=== PATIENT | male | born 1960 | race African-American/Black ===

== ENCOUNTER 2024-12-03 13:45 | Emergency (ER) | payer OTHER ==
[~2024-12-03] VITALS: Ht 180.3 cm; Wt 85.0 kg
[2024-12-03 14:03] VITALS: BP 175/99; PULSE 78; RESP 16; TEMP 37.1; O2SAT 100
== END 2024-12-03 17:45 | disposition left against medical advice (07) ==
LOC: ER 13:45
DX: R42 Dizziness and giddiness (principal); F19.90 Other psychoactive substance use, unspecified, uncomplicated
CPT/HCPCS: 71045; 93005; 99283